=== PATIENT | male | born 1960 | race Caucasian/White ===

== ENCOUNTER 2016-12-12 05:25 | Observation (INO) | payer OTHER ==
[2016-12-12 06:02] LABS: % IMMATURE GRANULYOCYTES 0.4 % (0.0-1.1); ABSOLUTE IMMATURE GRANULOCYTES 0.06 10^3/uL (0.00-0.10); ADD DIFF? NO; ADD MORPH? NO; ATYPICAL LYMPHOCYTE FLAG 20 (0-99); FRAGMENT RBC FLAG 0 (0-99); HEMATOCRIT 41.2 % (40.0-51.0); HEMOGLOBIN 13.8 g/dL (13.7-17.5); LEFT SHIFT FLG 0 (0-99); LIPEMIA HEMOLYSIS FLAG 80 (0-99); MEAN CELL HEMOGLOBIN 27.9 pg (27.9-34.1); MEAN CELL HEMOGLOBIN CONCENTR. 33.5 g/dL (32.4-36.7); MEAN CELL VOLUME 83.4 fL (81.5-99.8); MEAN PLATELET VOLUME 9.3 fL (8.7-11.7); PLATELET CLUMPS FLAG 0 (0-99); PLATELET COUNT 306 10^3/uL (150-400); RED BLOOD CELL COUNT 4.94 10^6/uL (4.40-6.38); RED CELL DISTRIBUTION WIDTH 16.3 % (11.5-15.2)
[2016-12-12 06:03] LABS: ADD SCAN? NO
[2016-12-12] MEDS ORDERED: FUROSEMIDE 40 MG/4 ML VIAL IVP ONE (06:11)
[2016-12-12 06:17] LABS: ANION GAP 15 mEq/L (8-16); CARBON DIOXIDE 28 mEq/l (22-31); CHLORIDE 104 mEq/L (97-110); CREATININE 0.7 mg/dL (0.7-1.3); GLOMERULAR FILTRATION RATE > 60; GLUCOSE 108 mg/dL (70-100); POTASSIUM 3.8 mEq/L (3.5-5.2); SODIUM 147 mEq/L (134-144)
--- NOTE | 2016-12-12 06:21 | EDPHY ---
H & P Stated Complaint: BILAT LEG SWELLING RASH TO ABD HPI/ROS: HPI The patient presents with bilateral leg swelling and pain which has been present for the last several days. The patient is currently incarcerated and being transferred to a different facility. He had previously been incarcerated [place] where he was receiving Lasix for edema. He has Htsaafh-Tzbcu-Gkcqu and has hammertoes bilaterally. Unfortunately, he could not wear his usual shoes while incarcerated and has been walking around in socks. He says his feet have been cracked and bleeding. For the last 3 days he has been sitting upright in a car, he has not had his medication. He says his legs are achy and more edematous than usual. He denies any fevers or chills, nausea or vomiting. REVIEW OF SYSTEMS Constitutional: No fever, no chills. Eyes: No discharge. ENT: No sore throat. Cardiovascular: No chest pain, no palpitations. Respiratory: No cough, no shortness of breath. Gastrointestinal: No abdominal pain, no vomiting. Genitourinary: No hematuria. Musculoskeletal: No back pain. Skin: No rashes. Neurological: No headache. PMHx: Kpztrdn-Pkhoo-Cgghg with hammertoes, asthma Soc Hx: Current incarcerated in being transported PHYSICAL General Appearance: Alert, no distress Eyes: Pupils equal and round no pallor or injection ENT, Mouth: Mucous membranes moist Respiratory: There are no retractions, lungs are clear to auscultation Cardiovascular: Regular rate and rhythm Gastrointestinal: Abdomen is soft and non-tender, no masses, bowel sounds normal, the pannus with darkly erythematous macules throughout Neurological: A&O, moves all extremities Skin: Warm and dry, no rashes Musculoskeletal: Neck is supple non tender Extremities: There is symmetric lower extremity edema below the knee, distal 1/ 2 of his legs bilaterally are erythematous, not warm, not tender to palpation, he has venous stasis changes, feet bilaterally with high arches and hammertoes, as his left 2nd toe is slightly erythematous and warm to the touch as well as tender, he has cracking of the skin of his feet Psychiatric: Patient is oriented X 3, there is no agitation Source: Patient Exam Limitations: No limitations - Personal History Current Tetanus/Diphtheria Vaccine: Yes Current Tetanus Diphtheria and Acellular Pertussis (TDAP): Yes Tetanus Vaccine Date: 2013 - Medical/Surgical History Hx Asthma: Yes Hx Chronic Respiratory Disease: No Hx Diabetes: No Hx Cardiac Disease: No Hx Renal Disease: No Hx Cirrhosis: No Hx Alcoholism: No Hx HIV/AIDS: No Hx Splenectomy or Spleen Trauma: No Other PMH: ASTHMA, CHARCOT BASHIR TOOTH, HERNIA REPAIR - Social History Smoking Status: Never smoked Constitutional: Initial Vital Signs Temperature (C) 36.7 C 12/12/16 05:25 Heart Rate 98 12/12/16 05:25 Respiratory Rate 18 12/12/16 05:25 Blood Pressure 134/77 H 12/12/16 05:25 O2 Sat (%) 94 12/12/16 05:25 O2 Delivery Mode Room Air Allergies/Adverse Reactions: iodine Allergy (Verified 12/12/16 05:53) penicillin G Allergy (Verified 12/12/16 05:53) Tetracyclines Allergy (Verified 12/12/16 05:53) Home Medications: Medication Instructions Recorded Furosemide [Lasix 20 MG (*)] 20 mg PO 12/12/16 Ibuprofen 800 mg PO TID 12/12/16 Levalbuterol Inhaler [Xopenex Hfa 12/12/16 Inhaler (*)] Medical Decision Making - Diagnostics Imaging Results: Chest x-ray demonstrates cardiomegaly with likely left-sided pleural effusion, interpreted by me, radiology interpretation pending. Left toe x-ray demonstrates no fracture, interpreted by me, radiology interpretation is pending. Imaging: I viewed and interpreted images myself Differential Diagnosis: This is a 56-year-old male, currently incarcerated, past medical history of Qxvhokf-Xmxdn-Xnpct please foot deformities, history of lower extremity edema of unclear ideology, asthma, who presents with bilateral lower extremity edema as well as foot pain. He has been seated in a van for the last 3 days being transported. Differential diagnosis includes chronic venous stasis worsened by prolonged upright positioning. CHF exacerbation is also a consideration however the patient has no history of this. Cellulitis would be unusual given his bilateral symptoms. His feet do seem to be suffering from poor wound care and lack of shoes. This is cause some cracking of his skin and he appears to have tinea pedis as well. The left 2nd toe looks very erythematous and there is concern for bacterial superinfection. I have given the patient Lasix for some diuresis and ceftriaxone for presumed toe infection. While ceftriaxone was running, nurse noticed that he seemed to be rigoring. He does not have a temperature here. However this is concerning. We will order blood cultures now. Labs were checked and do reveal a leukocytosis. Otherwise labs are unremarkable. Chest x-ray shows cardiomegaly, however BNP is normal. He may need AP and lateral views later. Given his profound edema there is concern about healing of his toe cellulitis. I believe he would benefit from inpatient hospitalization for continued diuresis and IV antibiotics. - Data Points Laboratory Results: Laboratory Results 12/12/16 05:55 12/12/16 05:55 12/12/16 12/12/16 12/12/16 06:40 05:55 05:55 WBC 14.08 10^3/uL H 10^3/uL (3.80-9.50) RBC 4.94 10^6/uL 10^6/uL (4.40-6.38) Hgb 13.8 g/dL g/dL (13.7-17.5) Hct 41.2 % % (40.0-51.0) MCV 83.4 fL fL (81.5-99.8) MCH 27.9 pg pg (27.9-34.1) MCHC 33.5 g/dL g/dL (32.4-36.7) RDW 16.3 % H % (11.5-15.2) Plt Count 306 10^3/uL 10^3/uL (150-400) MPV 9.3 fL fL (8.7-11.7) Neut % (Auto) 74.4 % H % (39.3-74.2) Lymph % (Auto) 17.8 % % (15.0-45.0) Hood % (Auto) 5.8 % % (4.5-13.0) Eos % (Auto) 1.0 % % (0.6-7.6) Baso % (Auto) 0.6 % % (0.3-1.7) Nucleat RBC Rel Count 0.0 % % (0.0-0.2) Absolute Neuts (auto) 10.47 10^3/uL H 10^3/uL (1.70-6.50) Absolute Lymphs (auto) 2.51 10^3/uL 10^3/uL (1.00-3.00) Absolute Monos (auto) 0.81 10^3/uL H 10^3/uL (0.30-0.80) Absolute Eos (auto) 0.14 10^3/uL 10^3/uL (0.03-0.40) Absolute Basos (auto) 0.09 10^3/uL 10^3/uL (0.02-0.10) Absolute Nucleated RBC 0.00 10^3/uL 10^3/uL (0-0.01) Immature Gran % 0.4 % % (0.0-1.1) Immature Gran # 0.06 10^3/uL 10^3/uL (0.00-0.10) VBG Lactic Acid 1.4 mmol/L mmol/L (0.7-2.1) Sodium 147 mEq/L H mEq/L (134-144) Potassium 3.8 mEq/L mEq/L (3.5-5.2) Chloride 104 mEq/L mEq/L (97-110) Carbon Dioxide 28 mEq/l mEq/l (22-31) Anion Gap 15 mEq/L mEq/L (8-16) BUN 19 mg/dL mg/dL (7-23) Creatinine 0.7 mg/dL mg/dL (0.7-1.3) Estimated GFR > 60 Glucose 108 mg/dL H mg/dL (70-100) Calcium 9.0 mg/dL mg/dL (8.5-10.4) Total Bilirubin Pending Conjugated Bilirubin Pending Unconjugated Bilirubin Pending AST Pending ALT Pending Alkaline Phosphatase Pending NT-Pro-B Natriuret Pep Total Protein Pending Albumin Pending 12/12/16 05:50 WBC RBC Hgb Hct MCV MCH MCHC RDW Plt Count MPV Neut % (Auto) Lymph % (Auto) Hood % (Auto) Eos % (Auto) Baso % (Auto) Nucleat RBC Rel Count Absolute Neuts (auto) Absolute Lymphs (auto) Absolute Monos (auto) Absolute Eos (auto) Absolute Basos (auto) Absolute Nucleated RBC Immature Gran % Immature Gran # VBG Lactic Acid Sodium Potassium Chloride Carbon Dioxide Anion Gap BUN Creatinine Estimated GFR Glucose Calcium Total Bilirubin Conjugated Bilirubin Unconjugated Bilirubin AST ALT Alkaline Phosphatase NT-Pro-B Natriuret Pep 49 pg/mL pg/mL (0-125) Total Protein Albumin Medications Given: Discontinued Medications Furosemide (Lasix Injection) 40 mg IVP EDNOW ONE Stop: 12/12/16 06:12 Last Admin: 12/12/16 06:19 Dose: 40 mg Departure - Departure Disposition: [facility] Acute Clinical Impression: Cellulitis of toe of left foot, Lower extremity edema, Tfnvrzo-Tiolg-Fddvf atrophy Leukocytosis Qualifiers: Leukocytosis type: unspecified Qualified Code(s): D72.829 - Elevated white blood cell count, unspecified Condition: Fair
[2016-12-12] MEDS ORDERED: VANCOMYCIN 1.5 GM in D5W 250 ML IV ONE (06:57)
[2016-12-12 07:05] LABS: ALANINE AMINOTRANSFERASE 42 IU/L (21-72); ALKALINE PHOSPHATASE 102 IU/L (38-126); ASPARTATE AMINOTRANSFERASE 33 IU/L (17-59); BILIRUBIN,TOTAL 1.3 mg/dL (0.1-1.4); BILIRUBIN-UNCONJUGATED 0.9 mg/dL (0.0-1.1); TOTAL PROTEIN 8.1 g/dL (6.3-8.2)
[2016-12-12] MEDS ORDERED: ONDANSETRON 4 MG/2 ML VIAL IVP PRN (07:05)
[2016-12-12] MEDS ORDERED: ONDANSETRON DISINTEGRATING 4 MG TAB PO PRN (07:05)
[2016-12-12] MEDS ORDERED: ACETAMINOPHEN 325 MG TAB PO PRN ×2 (07:05→11:13)
--- NOTE | 2016-12-12 07:10 | CPEKG ---
Heart Rate: 97 RR Interval: 619 P-R Interval: 172 QRSD Interval: 76 QT Interval: 360 QTC Interval: 458 P Manchester: 45 QRS Manchester: 19 T Wave Manchester: 15 EKG Severity - ABNORMAL ECG - EKG Impression: SINUS TACHYCARDIA EKG Impression: MULTIPLE ATRIAL PREMATURE COMPLEXES Preliminary Awaiting MD Review
[2016-12-12] MEDS ORDERED: VANCOMYCIN 1 GM/NS 250 ML BAG IV ONE (07:38)
--- NOTE | 2016-12-12 07:46 | PDGENHP ---
History and Physical - Chief Complaint Foot pain - History of Present Illness 56 yo M w/ hx of Charcot Naheed Tooth, HTN, and asthma presents with L foot pain. Patient has noticed left foot pain for 2 weeks and chills for 1 week. This has progressed over the last few days as he has spent several days in a van during transport, seemingly by authorities. Additionally, he has lower extremity edema, which he says only happens when he gets an infection. He says on this occasion this has been present for a few days. History Information - Allergies/Home Medication List Allergies/Adverse Reactions: iodine Allergy (Verified 12/12/16 05:53) penicillin G Allergy (Verified 12/12/16 05:53) Tetracyclines Allergy (Verified 12/12/16 05:53) Home Medications: Furosemide [Lasix 20 MG (*)] 20 mg PO 12/12/16 [Last Taken Unknown] Ibuprofen 800 mg PO TID 12/12/16 [Last Taken Unknown] Levalbuterol Inhaler [Xopenex Hfa Inhaler (*)] 12/12/16 [Last Taken Unknown] I have personally reviewed and updated: family history, medical history - Past Medical History asthma, hypertension Additional medical history: Charcot Naheed Tooth - Family History Positive for: diabetes type II - Social History Smoking Status: Never smoked Review of Systems Review of Systems: ROS: 10pt was reviewed & negative except for what was stated in HPI & below Physical Exam Physical Exam: Temp Pulse Resp BP Pulse Ox 36.7 C 98 18 134/77 H 94 12/12/16 05:25 12/12/16 05:25 12/12/16 05:25 12/12/16 05:25 12/12/16 05:25 Constitutional: no apparent distress, obese, unkempt Eyes: PERRL, EOMI Ears, Nose, Mouth, Throat: moist mucous membranes, no oral mucosal ulcers Cardiovascular: regular rate and rhythym, other (Quiet heart sounds) Respiratory: no respiratory distress, clear to auscultation Gastrointestinal: normoactive bowel sounds, soft, non-tender abdomen Skin: warm, erythema (L 2nd toe, ruptured blister and additional laceration on sole of L foot) Musculoskeletal: full muscle strength, no muscle tenderness Neurologic: AAOx3, CN II-XII Intact Psychiatric: interacting appropriately, not anxious Lab Data & Imaging Review 12/12/16 05:55 12/12/16 05:55 WBC 14.08 10^3/uL (3.80-9.50) H 12/12/16 05:55 RBC 4.94 10^6/uL (4.40-6.38) 12/12/16 05:55 Hgb 13.8 g/dL (13.7-17.5) 12/12/16 05:55 Hct 41.2 % (40.0-51.0) 12/12/16 05:55 MCV 83.4 fL (81.5-99.8) 12/12/16 05:55 MCH 27.9 pg (27.9-34.1) 12/12/16 05:55 MCHC 33.5 g/dL (32.4-36.7) 12/12/16 05:55 RDW 16.3 % (11.5-15.2) H 12/12/16 05:55 Plt Count 306 10^3/uL (150-400) 12/12/16 05:55 MPV 9.3 fL (8.7-11.7) 12/12/16 05:55 Neut % (Auto) 74.4 % (39.3-74.2) H 12/12/16 05:55 Lymph % (Auto) 17.8 % (15.0-45.0) 12/12/16 05:55 [place]ion % (Auto) 5.8 % (4.5-13.0) 12/12/16 05:55 Eos % (Auto) 1.0 % (0.6-7.6) 12/12/16 05:55 Baso % (Auto) 0.6 % (0.3-1.7) 12/12/16 05:55 Nucleat RBC Rel Count 0.0 % (0.0-0.2) 12/12/16 05:55 Absolute Neuts (auto) 10.47 10^3/uL (1.70-6.50) H 12/12/16 05:55 Absolute Lymphs (auto) 2.51 10^3/uL (1.00-3.00) 12/12/16 05:55 Absolute Monos (auto) 0.81 10^3/uL (0.30-0.80) H 12/12/16 05:55 Absolute Eos (auto) 0.14 10^3/uL (0.03-0.40) 12/12/16 05:55 Absolute Basos (auto) 0.09 10^3/uL (0.02-0.10) 12/12/16 05:55 Absolute Nucleated RBC 0.00 10^3/uL (0-0.01) 12/12/16 05:55 Immature Gran % 0.4 % (0.0-1.1) 12/12/16 05:55 Immature Gran # 0.06 10^3/uL (0.00-0.10) 12/12/16 05:55 VBG Lactic Acid 1.4 mmol/L (0.7-2.1) 12/12/16 06:40 Sodium 147 mEq/L (134-144) H 12/12/16 05:55 Potassium 3.8 mEq/L (3.5-5.2) 12/12/16 05:55 Chloride 104 mEq/L (97-110) 12/12/16 05:55 Carbon Dioxide 28 mEq/l (22-31) 12/12/16 05:55 Anion Gap 15 mEq/L (8-16) 12/12/16 05:55 BUN 19 mg/dL (7-23) 12/12/16 05:55 Creatinine 0.7 mg/dL (0.7-1.3) 12/12/16 05:55 Estimated GFR > 60 12/12/16 05:55 Glucose 108 mg/dL (70-100) H 12/12/16 05:55 Calcium 9.0 mg/dL (8.5-10.4) 12/12/16 05:55 Total Bilirubin 1.3 mg/dL (0.1-1.4) 12/12/16 05:55 Conjugated Bilirubin 0.0 mg/dL (0.0-0.5) 12/12/16 05:55 Unconjugated Bilirubin 0.9 mg/dL (0.0-1.1) 12/12/16 05:55 AST 33 IU/L (17-59) 12/12/16 05:55 ALT 42 IU/L (21-72) 12/12/16 05:55 Alkaline Phosphatase 102 IU/L (38-126) 12/12/16 05:55 NT-Pro-B Natriuret Pep 49 pg/mL (0-125) 12/12/16 05:50 Total Protein 8.1 g/dL (6.3-8.2) 12/12/16 05:55 Albumin 4.0 g/dL (3.5-5.0) 12/12/16 05:55 Assessment & Plan Assessment: 56 yo M w/ Charcot Naheed Tooth, morbid obesity, HTN, and asthma presents with L 2nd toe cellulitis. Plan: 1. L 2nd toe cellulitis - With WBC of 14, no sepsis physiology currently. Patient reports foot pain for 2 weeks and chills for 1 week. Complicated by obesity and lower extremity edema. CXR shows small erosion at the base of the proximal phalanx, will need to rule out OM. - S/p furosemide 40 mg IV in ED - MRI to evaluate for osteomyelitis - Blood cultures - Vancomycin IV 2. HTN - Patient does not know what medication he takes, will need med reconciliation. 3. Reported hx of asthma - With no evidence of acute exacerbation. Albuterol PRN. 4. Hx of Charcot Naheed Tooth 5. Morbid obesity - Will check A1c and lipid panel. 6. Lower extremity edema - Patient says this only happens when he has an infection, no prior diagnosis of heart failure. He could certainly have diastolic dysfunction noting morbid obesity and likely DUC. S/p Lasix 40 mg IV in ED. Diet - Regular Code - Full Ppx - LMWH Dispo - Admit to observation
[2016-12-12 08:07] LABS: CHOLESTEROL 208 mg/dL (140-220); CHOLESTEROL/HDL RATIO 7.17 RATIO (1.00-4.97); HIGH DENSITY LIPOPROTEIN 29 mg/dL (40-65); LDL/HDL RATIO 5.21 RATIO (1.00-3.64); LOW DENSITY LIPOPROTEIN 151 mg/dL (80-100); NON-HIGH DENSITY LIPOPROTEIN 179 mg/dL (90-129); TRIGLYCERIDE 141 mg/dL (40-150); VERY LOW DENSITY LIPOPROTEINS 28 mg/dL (8-25)
[2016-12-12] MEDS: ENOXAPARIN 40 MG/0.4 ML SYR SC SCH (08:48)
[2016-12-12] MEDS ORDERED: CETIRIZINE 10 MG TAB PO PRN (11:13)
[2016-12-12] MEDS ORDERED: IBUPROFEN 600 MG TAB PO PRN (11:13)
[2016-12-12] MEDS ORDERED: LEVALBUTEROL INHALER 200 PUFFS/15 GM MDI IH PRN (11:13)
[2016-12-12] MEDS: oxyCODONE IR 5 MG TAB PO PRN ×3 (11:22→20:24)
[2016-12-12 11:41] LABS: HEMOGLOBIN A1C 6.6 % (4.0-6.0)
--- NOTE | 2016-12-12 11:56 | WOCRNPDOC ---
WOCRN Advanced Assessment Note - Skin Integrity Problem, Advanced Assess Left Second Toe Unknown Dressing Type: Open to Air Exudate Amount: None Marcela Wound Tissue: Erythema, Swollen Marcela Wound Swelling: Moderate Wound Bed Color: [place], Yellow Wound Bed Constitution: Adhered Slough Site Odor: Moderate Site Measurement - Head-to-Toe Length X Width X Depth (cm): 0.9cmx1.4cmx0.2cm Skin Integrity Problem Comment: Patient with red, swollen 2nd toe with full thickness opening of unknown etiology. Wound bed currently with yellow adhered slough and no drainage. Wound cleansed with NS and gauze. Marcela wound tissue red and swollen. Patient reports being "able to feel" me touching his toe, but not pain. Patient would likely benefit longer term from compression to both legs but given his likely short hospital stay and the unlikliness of his care being continued while incarcerated out of state, we will not order at this time. Wound care will not follow this wound. Please reconsult PRN.
--- NOTE | 2016-12-12 15:20 | HOSPPROG ---
Hospitalist Progress Note Assessment/Plan: 56 yo M w/ Charcot Naheed Tooth, morbid obesity, HTN, and asthma presents with L 2nd toe cellulitis. Plan: 1. L 2nd toe cellulitis - With WBC of 14, no sepsis physiology currently. Patient reports foot pain for 2 weeks and chills for 1 week. Complicated by obesity and lower extremity edema. Toe xray shows small erosion at the base of the proximal phalanx, will need to rule out OM. - S/p furosemide 40 mg IV in ED - MRI to evaluate for osteomyelitis - Blood cultures - Vancomycin IV -ID and podiatry consult, D/W Dr Jones and Marianela 2. HTN - cont home meds add if needed 3. Reported hx of asthma - With no evidence of acute exacerbation. Albuterol PRN. 4. Hx of Charcot Naheed Tooth 5. Morbid obesity - Will check A1c and lipid panel. 6. Lower extremity edema - Patient says this only happens when he has an infection, no prior diagnosis of heart failure. He could certainly have diastolic dysfunction noting morbid obesity and likely DUC. S/p Lasix 40 mg IV in ED. cont lasix Diet - Regular Code - Full Ppx - LMWH Dispo - Admit to observation Subjective: Feels ok. Still having pain. Objective: Vital Signs Temp Pulse Resp BP Pulse Ox 36.9 C 77 20 140/58 H 95 12/12/16 12:00 12/12/16 12:00 12/12/16 12:00 12/12/16 12:00 12/12/16 12:00 - Physical Exam Constitutional: chronically ill appearing, obese, uncomfortable Eyes: PERRL, anicteric sclera, EOMI Ears, Nose, Mouth, Throat: moist mucous membranes, hearing normal, ears appear normal Cardiovascular: regular rate and rhythym, edema, No JVD Respiratory: no respiratory distress, no rales or rhonchi, reduced air movement Gastrointestinal: normoactive bowel sounds, No tenderness, No ascites Skin: warm, erythema, induration Musculoskeletal: joint tenderness, pain with ROM, generalized weakness Neurologic: AAOx3 Psychiatric: not anxious, not encephalopathic, thought process linear, poor insight, poor judgement ICD10 Worksheet Patient Problems: Problems Problem Status Onset Cellulitis of toe of left foot Acute Lower extremity edema Acute Fevsata-Sikof-Udndx atrophy Acute Leukocytosis Acute
[2016-12-12] MEDS: VANCOMYCIN 1.25 GM in D5W 250 ML IV SCH (16:51)
[2016-12-12] MEDS ORDERED: GADOBUTROL 10 ML VIAL IVP ONE (18:06)
[2016-12-12] MEDS: CLINDAMYCIN 600 MG/DEXTROSE 50 ML IV SCH (22:16)
[2016-12-13] MEDS: VANCOMYCIN 1.25 GM in D5W 250 ML IV SCH ×2 (00:32→10:42)
--- NOTE | 2016-12-13 04:38 | GCON ---
[f rep st] CONSULTATION INPATIENT INFECTIOUS DISEASE CONSULTATION REFERRING PHYSICIAN: Lima Donnelly NP REASON FOR REFERRAL: Left 2nd toe cellulitis, possible osteomyelitis. HISTORY OF PRESENT ILLNESS: Patient is a 56-year-old male who was in custody of the authorities and being transported from [place] to other parts of the country on his way to [place] to face charges on an outstanding warrant. The transporting officers noted that the patient had a worsening malodorous wound on his foot. This necessitated them to stop in [facility] to get this looked at. Patient states that he has had increasing pain in his left foot for 2 weeks, and chills for the past week. He also notes that he has had new onset of increased lower extremity edema, which he states happens w hen he gets an acute infection. Patient was seen in the emergency room in the speech therapist early intervention hours of 12/12/2016. Laboratory evaluation revealed a leukocytosis to 14,000. Chemistry panels were unrevea ling except for a mildly elevated hemoglobin A1c. We are consulted to help guide antibiotic coverage . They also wish to know if he can be treated with antibiotics orally in order to allow the authorit ies to continue transporting him and his fellow prisoners across the country to their destination. PAST MEDICAL HISTORY: 1. Asthma. 2. Hypertension. 3. Glucose intolerance. 4. Lyhgdua-Jwcrb-Nbgtk syndrome. 5. PAST SURGICAL HISTORY: None noted. MEDICATIONS: Antibiotics: 1. Vancomycin 1.25 g IV q.8 hours. 2. Patient also received 1 dose of Rocephin this morning in the emergency room. ALLERGIES: Patient is allergic to penicillin, as well as tetracyclines. Penicillins cause his throa t to close, and tetracyclines results in a rash. SOCIAL HISTORY: Patient denies any tobacco. Occasional alcohol. No other drug use noted. FAMILY HISTORY: Positive for type 2 diabetes. REVIEW OF SYSTEMS: Other than that detailed above in History of Present Illness, a comprehensive 10- system review is negative. PHYSICAL EXAMINATION: VITAL SIGNS: Temperature maximum is 36/9, temperature current is 36.8. Heart rate 94, respiratory rate is 22, blood pressure is 141/80. GENERAL: Patient is an obese middle-age d male in no acute distress. He is not toxic in appearance. He is alert and oriented x3. He is ple asant in demeanor. HEENT: Normocephalic for age. Atraumatic. No scleral icterus. No oral lesion. No drainage from the nares. Eyes: Lids and conjunctivae are within normal limits. Pupils are equ al and round bilaterally. NECK: Supple. No meningismus. LUNGS: Clear to auscultation bilaterally with good effort. HEART: Regular rate and rhythm. 2+ peripheral edema bilateral lower extremities midshin distal. SKIN: Warm and dry to the touch. No rash noted. Patient has abraded ulcerations on the dorsal aspect of the toes bilaterally. These are secondary to disfigurement due to trigger di gits. Patient also has some traumatic lesions from rubbing of adjacent toenails into the soft tissue of the toes. The soft tissue of the 2nd toe on the left foot is significantly inflamed. It is mild ly indurated. There is no significant fluctuation noted. The area is malodorous. MUSCULOSKELETAL: No other muscle belly tenderness is noted. No joint effusion arthritis is noted. NEURO: Cranial n erves 2-12 seem to be intact. Peripheral sensation seems somewhat decreased in the lower extremities . LABORATORY DATA: Patient has a CBC dated 12/12/2016, shows a white blood cell count of 14.1, hemoglo bin of 13.8, hematocrit of 41.2, and a platelet count of 306. There is a mild left shift with 74.4% segmented neutrophils. Serum chemistries on 12/12/2016 show sodium of 147, potassium of 3.8, chlorid e of 104, bicarbonate of 28, BUN of 19, creatinine of 0.7. AST is 33, ALT is 42, total protein is 8. 1. Hemoglobin A1c is 6.6. MICROBIOLOGIC DATA: Patient has blood cultures from 12/12/2016, which are pending. RADIOLOGIC DATA: Patient has a toe x-ray dated 12/12/2016, which shows a small erosion of the base o f the proximal phalanx of the 2nd toe. ASSESSMENT: Left 2nd toe cellulitis with possible osteomyelitis. Patient has clearly developing typ e 2 diabetes which he certainly is at risk of due to family history as well as obesity. He also has deformities of trigger joints of significant number of lower extremity digits. These cause abnormal friction points in footwear. This has likely led to soft tissue infection of the left 2nd digit. Th e underlying bony evaluation looks like there may be some foci of infection on the bone as well. Pod iatry has been consulted, and the patient will be evaluated by an MRI to see if these areas of erosio n represent inflammation and osteomyelitis. If this is true, the patient may need either resection o f the toe or debridement of the area. We will decide on this based on the imaging evaluation. In th e meantime, treatment with vancomycin is reasonable. Will continue coverage with ceftriaxone and cli ndamycin for anaerobe coverage also. Will follow up on results of the MRI that is planned. PLAN: 1. Obtain MRI with gadolinium. 2. Continue vancomycin. 3. Start ceftriaxone at 2 g IV q.24 hours, as well as clindamycin 300 mg IV q.8 hours. /[id number]/MODL
[2016-12-13 04:49] VITALS: RESP 20
[2016-12-13] MEDS: CLINDAMYCIN 600 MG/DEXTROSE 50 ML IV SCH ×2 (06:03→15:02)
[2016-12-13] MEDS ORDERED: FUROSEMIDE 20 MG TAB PO SCH (09:00)
[2016-12-13] MEDS ORDERED: CYANO/VITAMIN B12 1000 MCG TAB PO SCH (09:00)
[2016-12-13] MEDS ORDERED: cefTRIAXone 2 GM in D5W 50 ML IV SCH (09:00)
[2016-12-13] MEDS ORDERED: POTASSIUM CL 10 MEQ TAB PO SCH (09:00)
[2016-12-13] MEDS: ENOXAPARIN 40 MG/0.4 ML SYR SC SCH (09:28)
--- NOTE | 2016-12-13 10:15 | SOAPPROG ---
SOAP Progress Note Assessment/Plan: Assessment: 1. open ulceration to left 2nd toe with cellulitis 2. bilateral leg edema with venous stasis dermatitis 3. onychodystrophy Plan: 1. Following left forefoot MRI showing no acute osteomyelitis, I believe that patient can be converted to oral abx and treated by local wound care. I have printed out a list of foot/ankle surgeons near his residence in [place]. He will need follow up once situated. Ordered bilateral surgical shoes to help with walking while foot bandaged and ankles swollen. 2. Bilateral leg edema needs to be addressed by chronic and consistent compression therapy to avoid cellulitis and further breakdown of skin. 3. Nails to be cared for by wood handler in [place] for preventative maintenance. 12/13/16 10:12 Subjective: Doing well. seen at bedside this morning. Denies f/c/n/v. Objective: Vital Signs Temp Pulse Resp BP Pulse Ox 37.2 C 89 20 131/70 H 94 12/13/16 08:00 12/13/16 08:00 12/13/16 08:00 12/13/16 08:00 12/13/16 08:00 - Time Spent With Patient Time Spent With Patient: 30 minutes - Pending Discharge Pending Discharge Within 24 Hours: Yes Pending Discharge Date: 12/14/16 Pending Discharge Time: 11:00 Physical Exam - Physical Exam General Appearance: WD/WN, alert, no apparent distress, obese Peripheral Pulses: 2+: dorsalis-pedis (R), dorsalis-pedis (L) Skin: rash, other (fungal rash within abdominal folds) Extremities: normal capillary refill, pedal edema, inflammation, other (wound is superficial to left 2nd toe serge 0.8x0.6x0.2cm PIP; mild erythema surrounding ; no ascending cellulitis) Neuro/Psych: no motor/sensory deficits, normal mood/affect, oriented x 3 (w) ICD10 Worksheet Patient Problems: Problems Problem Status Onset Cellulitis of toe of left foot Acute Wwkkxkt-Oqhuh-Jedbu atrophy Acute Leukocytosis Acute Lower extremity edema Acute
--- NOTE | 2016-12-13 10:34 | PCMIDPN ---
Assessment/Plan: Assessment/Plan: 1. Left toe ulceration with slough, cellulitis: - cellulitis has mostly resolved. -he needs wound care going forward and follow up with podiatry in [place], [place] - Currently on vanco, ceftriaxone, clinda -states he got itchy with ceftin?? but is tolerating ceftraixone so far. -MRI without osteomyelitis. - recommend one dose of dapto now and then can go on clindamycin for 7 days. -care cooridated with hosptalist team and Dr. Bear 2. chronic venous stasis dermatitis: 3. Obesity meds as above. Subjective: afebrile. feels better. denies sob. hasn't moved bowels in a few days. passing gas. denies abd pain. Le edema. Objective: Vital Signs Temp Pulse Resp BP Pulse Ox 37.2 C 89 20 131/70 H 94 12/13/16 08:00 12/13/16 08:00 12/13/16 08:00 12/13/16 08:00 12/13/16 08:00 - Physical Exam General Appearance: alert, no apparent distress Respiratory: lungs clear Cardiac/Chest: regular rate, rhythm Extremities: swelling Abdomen: normal bowel sounds, non-tender, soft, No distended Skin: other (bilateral venous stasis dermatitis lower legs. left 2nd toe ulceration on dorsum with slough, wet. superficial ulceration on plantar surface as well, with dried blood noted. no purulence. ) ICD10 Worksheet Patient Problems: Problems Problem Status Onset Cellulitis of toe of left foot Acute Lower extremity edema Acute Swyvkhj-Eaoqz-Bomqd atrophy Acute Leukocytosis Acute
[2016-12-13] MEDS ORDERED: DAPTOmycin 600 MG in NS 100 ML IV ONE (11:00)
[2016-12-13 11:20] VITALS: BP 127/76; PULSE 86; TEMP 98.6; O2SAT 95
[2016-12-13] MEDS: oxyCODONE IR 5 MG TAB PO PRN (13:29)
--- NOTE | 2016-12-13 14:20 | GDS ---
[f rep st] DISCHARGE SUMMARY DISCHARGE DIAGNOSES: 1. Lower extremity cellulitis. 2. Left toe ulceration with sloughing. 3. Chronic venous stasis dermatitis. 4. Morbid obesity. CONSULTATIONS: 1. Dr. Bear of Podiatry. 2. Infectious Disease. STUDIES AND PROCEDURES DONE: 1. Chest x-ray. 2. Toe x-ray. 3. Lower extremity MRI. PHYSICAL EXAM: GENERAL: The patient is alert. VITAL SIGNS: Afebrile at 37, pulse is 86, respirato ry rate is 20, blood pressure is 127/76. He is saturating 95% on room air. I have seen and evaluate d the patient on the day of discharge. HOSPITAL COURSE: .The patient is a 56-year-old male who presented to the emergency room with complai nts of bilateral foot pain. He was evaluated and diagnosed with: 1. Left lower extremity cellulitis as well as toe ulceration was sloughing. During this hospitaliza tion, he received a consultation from Dr. Bear of podiatry as well as Infectious Disease. He w as placed on IV antibiotic therapy. An MRI of the lower extremity was performed with no osteomyeliti s identified. His condition has significantly improved and he will continue on outpatient clindamyci n with followup with podiatry of his choice. 2. Hypertension, this is stable. 3. Morbid obesity. The patient's hemoglobin A1c is 6.6, and requires followup in the outpatient set ting by his primary care physician. 4. Chronic venous stasis dermatitis. The patient has been educated with regard to the need for comp ression stockings as well as follow up with his primary care physician. He is in agreement with this plan. DISPOSITION: The patient will be discharged home independently. There are no pending studies. DISCHARGE MEDICATIONS: Clindamycin 450 mg p.o. q.8 hours for a total of 7 days, prescriptions have b een provided to him prior to disposition. Other discharge medications please refer to EMR form. I h ave not adjusted the patient's previously prescribed home medications to the best of my knowledge. FOLLOWUP: Again, followup will be in [place] with his primary care physician, as well as a geriatric aide of his choice. I reviewed the patient's disposition plan with Infectious Disease as well as Podiatry who are both in agreement with this plan. I spent greater than 35 minutes in the care, coordination, and management of the patient's dispositio n. /[id number]/MODL
[2016-12-13] MEDS ORDERED: ENOXAPARIN 40 MG/0.4 ML SYR SC SCH (21:00)
== END 2016-12-13 16:08 | disposition home or self-care (01) ==
LOC: EEVIPCON 07:05 → F3E 08:10
PROVIDERS: ADMIT Student in an Organized Health Care Education/Training Program; ATTEND Student in an Organized Health Care Education/Training Program
DX: L03.116 Cellulitis of left lower limb (principal); L97.529 Non-pressure chronic ulcer of other part of left foot with unspecified severity; I10 Essential (primary) hypertension; E66.01 Morbid (severe) obesity due to excess calories; I87.2 Venous insufficiency (chronic) (peripheral); J45.909 Unspecified asthma, uncomplicated
CPT/HCPCS: 71010; 73660; 73720; 93005; G0378; 96374; A9585; J0696; J0878; J1650; J1940; J3370